=== PATIENT | female | born 1945 | race Hispanic/Latino ===

== ENCOUNTER 2019-04-30 22:54 | Emergency (ER) | payer OTHER, MEDICARE ==
[2019-05-01] MEDS ORDERED: KETOROLAC TROMETHAMINE 30MG/ML ONE (00:04)
[2019-05-01] MEDS ORDERED: DEXAMETHASONE SOD PHOSPHATE 10MG/ML 1ML VIAL ONE (00:04)
== END 2019-05-01 00:28 | disposition home or self-care (01) ==
LOC: EDH 22:54
DX: J01.90 Acute sinusitis, unspecified (principal); I10 Essential (primary) hypertension; Z88.8 Allergy status to other drugs, medicaments and biological substances
CPT/HCPCS: 70450; 96372 ×2; 99284; J1100; J1885

== ENCOUNTER → 2019-05-25 | Outpatient (CLI) | payer OTHER, MEDICARE | END | disposition home or self-care (01) | LOC: RAH 08:20 | PROVIDERS: ATTEND Internal Medicine | DX: K44.9 Diaphragmatic hernia without obstruction or gangrene (principal); K21.9 Gastro-esophageal reflux disease without esophagitis | CPT/HCPCS: 74240 ==

== ENCOUNTER 2019-10-23 15:48 | Emergency (ER) | payer OTHER, MEDICARE ==
[2019-10-23 16:20] LABS: BASOPHILS % (AUTO) 0.6 % (0.0-5.0); EOSINOPHILS % (AUTO) 1.6 % (0.0-8.0); HEMATOCRIT 36.4 % (36-48); LYMPHOCYTES % (AUTO) 28.9 % (21.0-51.0); MEAN CORPUSCULAR HEMOGLOBIN 31.3 pg (27.0-33.0); MONOCYTES % (AUTO) 5.8 % (3.0-13.0); NEUTROPHILS % (AUTO) 62.7 % (40.0-77.0); PLATELET COUNT (AUTO) 273 K/uL (130-400); RED BLOOD CELL COUNT(AUTO) 3.83 MIL/uL (4.00-5.50); RED CELL DISTRIBUTION WIDTH 13.2 % (11.0-15.5); WHITE BLOOD COUNT (AUTO) 8.3 K/uL (4.8-10.8)
[2019-10-23 16:21] LABS: APPEARANCE,URINE SL CLOUDY (CLEAR); BILIRUBIN,URINE NEGATIVE (NEGATIVE); COLOR,URINE YELLOW (YELLOW); GLUCOSE, URINE (UA) NEGATIVE (NEGATIVE); KETONES,URINE NEGATIVE (NEGATIVE); LEUKOCYTE ESTERASE ,URINE MODERATE (NEGATIVE); NITRATE,URINE POSITIVE (NEGATIVE); OCCULT BLOOD,URINE SMALL (NEGATIVE); PH,URINE 5.5 (5.0-8.0); PROTEIN,URINE NEGATIVE (NEGATIVE); UROBILINOGEN,URINE 0.2 mg/dL (0.2-1.0)
[2019-10-23 16:38] LABS: WBC,URINE 26-50 /HPF (0-1)
[2019-10-23 16:39] LABS: BACTERIA,URINE Moderate /HPF (None Seen); SQUAMOUS EPITHELIAL CELL,UR Few /HPF (0-2)
[2019-10-23 17:06] LABS: ALBUMIN 4.1 g/dL (3.5-5.0); BILIRUBIN,TOTAL 0.2 mg/dL (0.2-1.0); CREATININE 1.1 mg/dL (0.5-1.5); TOTAL PROTEIN, SERUM 7.8 g/dL (6.0-8.3)
[2019-10-23 17:12] LABS: POTASSIUM 3.1 mmol/L (3.5-5.1)
[2019-10-23] MEDS ORDERED: SODIUM CHLORIDE 0.9% 1000ML 1,000 ML IV ONE (17:49)
[2019-10-23] MEDS ORDERED: KETOROLAC TROMETHAMINE 15MG/ML ONE (17:49)
[2019-10-23] MEDS ORDERED: CEFTRIAXONE SODIUM 1 GM ONE (17:49)
[2019-10-23] MEDS ORDERED: SODIUM CHLORIDE 0.9% 100 ML IV ONE (17:50)
[2019-10-23] MEDS ORDERED: POTASSIUM BICARB/CIT AC 25 MEQ TABLET.EFF ONE (18:20)
== END 2019-10-23 19:00 | disposition home or self-care (01) ==
LOC: EDH 15:48
DX: N39.0 Urinary tract infection, site not specified (principal); M25.552 Pain in left hip; I10 Essential (primary) hypertension; Z98.51 Tubal ligation status; Z90.49 Acquired absence of other specified parts of digestive tract; Z98.890 Other specified postprocedural states
CPT/HCPCS: 36415; 73502; 74176; 80053; 81001; 83690; 85025; 87077; 87088; 87186; 96374; 96375; 99285; J0696; J1885; J7030

== ENCOUNTER 2024-07-23 10:55 | Emergency (ER) | payer OTHER, MEDICARE ==
[~2024-07-23] VITALS: Ht 162.6 cm; Wt 81.6 kg
--- NOTE | 2024-07-23 11:29 | ERN ---
General Chief Complaint: Hip Pain/Injury Stated Complaint: R HIP PAIN Time Seen by MD: 10:59 Source: patient History of Present Illness Initial Comments Patient is a 79-year-old female coming in complaining of right hip pain. She states that the right hip began its own she does not remember any traumatic event. The pain began two days ago the pain is present in the right hip region radiating down the anterior part in his leg. She states that ambulating makes the pain worse. Allergies: Coded Allergies: Iodine and Iodide Containing Produc (Unverified Allergy, Unknown, 05/01/19) Past Medical History Past Medical History: Hypertension, Hypothyroid, Other Medical History Other: GALLSTONES Past Surgical History: Appendectomy, Cholecystectomy, Other Surgical History Other: THYROIDECTOMY, TUBAL LIGATION, BILATERAL KNEE SX. ROS Dictation CONSTITUTIONAL: No chills, no fever, no weakness, no diaphoresis, no malaise. HEAD/FACE: No signs of trauma. EENT: No eye pain, no blurred vision, no tearing, no double vision, no ear pain, no ear discharge, no nose pain, no nasal congestion, no throat pain, no t hroat swelling, no mouth pain. RESPIRATORY: No cough, no orthopnea, no SOB, no stridor, no wheezing. CARDIOVASCULAR: No chest pain, no edema, no palpitations, no syncope. GASTROINTESTINAL/ABDOMINAL: No abdominal pain, no constipation, no diarrhea, n o nausea, no vomiting. GENITOURINARY: No abnormal discharge, no dysuria, no frequent urination, no hematuria. No complaints of pain in the genitals. MUSCULOSKELETAL: No back pain, no gout, no joint pain, no joint swelling, no muscle pain, no muscle stiffness, no neck pain. INTEGUMENTARY: No change in color, no change in hair/nails, no dryness, no lesion, no lumps, no rash. NEUROLOGICAL/PSYCH: No anxiety, not depressed, no emotional problem, no headache, no numbness, no pre-existing deficit, no history of seizures, no tremors, no weakness. HEMATOLOGIC/LYMPHATIC: Not anemic, no history of blood clots, no apparent bleeding, no bruising, glands not swollen. All Systems Negative, Except as Noted. Physical Exam Physical Exam Dictation VITAL SIGNS: Reviewed. GENERAL APPEARANCE: Alert, oriented x3, no acute distress, obese. HEAD AND FACE: Non-traumatic. EYES: PERRL, pink conjunctivas, eyelid no trauma, anterior chamber clear. EARS: Pinnas intact and no signs of trauma or erythema. Ear canals clear and no discharge. TMs no erythema. NOSE: No discharge, no bleeding. OROPHARYNX: Mouth normal, teeth no caries, tongue pink. Pharynx clear, no erythema. Tonsils no exudates, no abscesses noted. Mucous membrane moist. NECK: Supple, non-tender, no thyromegaly, no masses, no JVD, no bruits. BREAST: Deferred. CHEST: No tenderness, no crepitus, no paradoxical movement, no retractions. LUNGS: Clear, well-ventilated, symmetric, no rales, no wheezing, no rhonchi, no stridor, good breath sounds bilaterally. HEART: Regular rate, regular rhythm, no murmur, no gallops. VASCULAR: No peripheral edema. ABDOMEN: Soft, positive bowel sounds, nondistended, no guarding, nontender, no rebound, no masses no hepatomegaly, no splenomegaly, no Pierce's sign, no hernias. RECTAL: Deferred. GENITAL: Deferred. NEUROLOGICAL: Normal speech, gross motor function intact, gross sensory function intact. MUSCULOSKELETAL: Neck nontender, full range of motion, back nontender, full range of motion. EXTREMITIES: Nontender, full range of motion. SKIN: Color pink, dry, no turgor, no rash, no lacerations, no abrasions, no contusions. LYMPHATICS: Deferred. Results Laboratory and Microbiology Lab and Micro Result Laboratory Tests Test 07/23/24 12:45 07/23/24 12:59 Urine Color LIGHT-YELLOW (YELLOW) Urine Appearance CLEAR (CLEAR) Urine pH 5.5 (5.0-8.0) Urine Specific [place] 1.020 (1.001-1.031) Urine Protein 10 mg/dL (NEGATIVE) H Urine Glucose (UA) NEGATIVE mg/dL (NEGATIVE) Urine Ketones NEGATIVE mg/dL (NEGATIVE) Urine Occult Blood NEGATIVE (NEGATIVE) Urine Nitrate NEGATIVE (NEGATIVE) Urine Bilirubin NEGATIVE mg/dL (NEGATIVE) Urine Urobilinogen 0.2 mg/dL (0.2-1.0) Urine Leukocyte Esterase 250 Ivan/uL (NEGATIVE) H Urine RBC 2-5 /HPF (0-1) H Urine WBC 26-50 /HPF (0-1) H Urine Squamous Epithelial Cells RARE /HPF (0-2) Urine Bacteria RARE /HPF (None Seen) Urine Hyaline Casts 2-5 /LPF (0-1 /LPF) H Urine Other Casts 2 /LPF (None Seen) White Blood Count 6.4 K/uL (4.8-10.8) Red Blood Count 3.83 MIL/uL (4.00-5.50) L Hemoglobin 12.1 g/dL (12.0-16.0) Hematocrit 36.8 % (36-48) Mean Corpuscular Volume 96.1 fL (79-99) Mean Corpuscular Hemoglobin 31.6 pg (27.0-33.0) Mean Corpuscular Hemoglobin Concent 32.9 g/dL (32.0-36.0) Red Cell Distribution Width 13.5 % (11.0-15.5) Platelet Count 236 K/uL (130-400) Mean Platelet Volume 9.2 fL (7.5-10.5) Immature Granulocyte % (Auto) 0.6 % (0-1) Neutrophils (%) (Auto) 72.1 % (40.0-77.0) Lymphocytes (%) (Auto) 19.9 % (21.0-51.0) L Monocytes (%) (Auto) 6.8 % (3.0-13.0) Eosinophils (%) (Auto) 0.3 % (0.0-8.0) Basophils (%) (Auto) 0.3 % (0.0-5.0) Neutrophils # (Auto) 4.6 K/uL (1.8-7.7) Lymphocytes # (Auto) 1.3 K/uL (1.0-4.8) Monocytes # (Auto) 0.4 K/uL (0.1-1.0) Eosinophils # (Auto) 0.02 K/uL (0.00-0.70) Basophils # (Auto) 0.02 K/uL (0.00-0.20) Absolute Immature Granulocyte (auto 0.04 K/uL (0-1) Nucleated Red Blood Cells 0.0 % (0.0-0.19) Sodium Level 139 mmol/L (136-145) Potassium Level 3.5 mmol/L (3.5-5.1) Chloride Level 104 mmol/L (101-111) Carbon Dioxide Level 29 mmol/L (21-32) Blood Urea Nitrogen 19 mg/dL (7-18) H Creatinine 1.0 mg/dL (0.5-1.0) Glomerular Filtration Rate Calc 57 mL/min (>90) Random Glucose 106 mg/dL (70-105) H Total Calcium 9.8 mg/dL (8.5-10.1) Labs Reviewed?: Yes EKG/XRAY/US/CT/MRI CT Scan Comment [facility] [address] [place] [address] IMAGING REPORT Signed PATIENT: SINDY BOYCE MR#: [id number] : 1945 SEX: F AGE: 79 LOCATION: ED ORDER 112 STATUS: REG ER REPORT#: [id number] SERVICE [id number] REASON: pain rlq/ hip ORDERING PHYSICIAN: MARIVEL CHOUDHURY MD PROCEDURE: ABD PEL WO - CT ABDOMEN/PELVIS W/O CONTRAST CT ABDOMEN WITHOUT CONTRAST. CT PELVIS WITHOUT CONTRAST. INDICATION: Right lower abdominal pain TECHNIQUE: Routine transaxial imaging using 5 mm slice thickness through the abdomen and pelvis without the administration of IV contrast. Thin slice reconstructions are also provided. Coronal and sagittal reformatted images acquired for interpretation. CT was performed with one or more of the following dose reduction techniques: Automated exposure control, adjustment of the mA and/or kV according to patient size, or use of iterative reconstruction technique. COMPARISON: 10/23/2019 FINDINGS: ON NONCONTRAST IMAGING: ABDOMEN: Heart size is normal. Linear scarring at both lung bases. Small simple bilateral renal cysts. 2 mm nonobstructing calculus at the mid to lower portion of the left kidney. 3 mm nonobstructing calculus at the lower portion of the right kidney. Severe right renal atrophy. The liver is normal in size and smooth in contour without biliary duct dilation. The spleen is normal in size and attenuation. The gallbladder is absent. The pancreas appears normal without pancreatic duct dilation. The adrenal glands appear normal. No significant abdominal, retrocrural or retroperitoneal adenopathy noted. No evidence for intra-abdominal free air or organized fluid collection. Mild calcific plaque is noted along the abdominal aortic and iliac vessel sanderson without aneurysmal dilation. PELVIS: No abnormal calcifications within the urinary bladder or distal ureters. No evidence for free air or organized pelvic fluid collection. No significant pelvic adenopathy detected. Several diverticula along the colon. The appendix was not well-visualized, but no evidence for any right lower abdominal inflammatory changes noted. Small lipoma occupies the right tensor fasciae latae muscle. Visible osseous structures are intact. IMPRESSION: 1. Nonobstructing bilateral nephrolithiasis. Severe right renal atrophy. 2. Diverticulosis coli. 3. The appendix was not well-visualized, but no evidence for any right lower abdominal inflammatory changes noted. 4. Additional minor findings and pertinent negatives as reported. DICTATED BY: JOHN RETANA MD DATE: 07/23/24 1149 ELECTRONICALLY SIGNED BY: JOHN RETANA MD DATE: 07/23/24 1156 [facility] MDM: DIFFERENTIAL DIAGNOSIS: UTI, FIBROMYALGIA, SCIATICA, PATIENT IS A 39-YEAR-OLD FEMALE COMING IN TO BE EVALUATED FOR RIGHT FLANK PAIN. CT DID NOT DISCLOSE ACUTE FINDINGS. PATIENT WAS FOUND TO HAVE A URINARY TRACT INFECTION WE WILL BE DISCHARGED WITH ANTIBIOTICS I ADVISED HER APPROPRIATE FOLLOW UP WITH PCP. LONG WITH THIS PATIENT WILL BE DISCHARGED WITH A DIAGNOSIS OF SCIATICA OF THE RIGHT HIP. ED Course Orders Procedure Category Date Status Time Ct Abdomen/Pelvis W/O CT 07/23/24 Resulted Contrast 11:21 Urinalysis LAB 07/23/24 Complete W/Microscopic 11:21 Cbc With Differential LAB 07/23/24 Complete 12:31 Basic Metabolic Panel LAB 07/23/24 Complete 12:31 Culture Urine KERWIN 07/23/24 In Process 13:07 Vital Signs Date Time Temp Pulse Resp B/P (MAP) Pulse Ox O2 Delivery O2 Flow Rate FiO2 07/23/24 10:58 98.8 68 16 164/68 98 Room Air 0 07/23/24 10:58 98.8 68 16 164/68 98 Room Air* 0 21 DX & DISP Disposition: Discharge Departure Impression: Primary Impression: UTI (urinary tract infection) Additional Impression: Right sided sciatica Condition: Stable Scripts Acetaminophen (Tylenol) 500 Mg Tab 1 TAB PO Q6HPRN PRN for pain or fever for 5 Days, #30 TAB 0 Refills Prov: MARIVEL CHOUDHURY MD 07/23/24 Methocarbamol (Robaxin) 750 Mg Tab 1 TAB PO BID for 7 Days, #14 TAB 0 Refills Prov: MARIVEL CHOUDHURY MD 07/23/24 Cephalexin Monohydrate (Keflex) 500 Mg Cap 1 CAP PO BID for 10 Days, #20 CAP 0 Refills Prov: MARIVEL CHOUDHURY MD 07/23/24 Additional Instructions: FOLLOW-UP WITH PRIMARY CARE PROVIDER IN 1 TO 2 DAYS. TAKE MEDICATIONS DIRECTED HERE IN THE EMERGENCY ROOM. OKAY TO CONTINUE HOME MEDICATIONS UNLESS OTHERWISE DISCUSSED DURING YOUR VISIT IN THE EMERGENCY ROOM TODAY. RETURN TO YOUR NEAREST EMERGENCY ROOM IF SYMPTOMS WORSEN OR IF THERE IS NO IMPROVEMENT. CALL 911 IF YOU NEED IMMEDIATE ASSISTANCE. TAKE TYLENOL [id number] NEEDED AND IF NO CONTRAINDICATIONS ARE PRESENT. INCREASE ORAL HYDRATION. A WOUND CULTURE OR URINE CULTURE WAS ORDERED HERE IN THE EMERGENCY ROOM DEPARTMENT PLEASE FOLLOW-UP WITH PRIMARY CARE PROVIDER AND ADVISE THEM TO GET REPEAT PORTS FROM OUR FACILITY. IF YOU HAD ANY WANDY WRAP/SPLINTS THAT WERE APPLIED HERE, PLEASE DO NOT REMOVE THEM UNTIL YOU SEE YOUR PRIMARY CARE OR SPECIALTY. REFERRALS: Referrals: DARIAN HECK (PCP) Time of Disposition: 13:39 MARIVEL CHOUDHURY MD Jul 23, 2024 11:28
--- NOTE | 2024-07-23 11:56 | HMCIMG ---
CT ABDOMEN WITHOUT CONTRAST. CT PELVIS WITHOUT CONTRAST. INDICATION: Right lower abdominal pain TECHNIQUE: Routine transaxial imaging using 5 mm slice thickness through the abdomen and pelvis without the administration of IV contrast. Thin slice reconstructions are also provided. Coronal and sagittal reformatted images acquired for interpretation. CT was performed with one or more of the following dose reduction techniques: Automated exposure control, adjustment of the mA and/or kV according to patient size, or use of iterative reconstruction technique. COMPARISON: 10/23/2019 FINDINGS: ON NONCONTRAST IMAGING: ABDOMEN: Heart size is normal. Linear scarring at both lung bases. Small simple bilateral renal cysts. 2 mm nonobstructing calculus at the mid to lower portion of the left kidney. 3 mm nonobstructing calculus at the lower portion of the right kidney. Severe right renal atrophy. The liver is normal in size and smooth in contour without biliary duct dilation. The spleen is normal in size and attenuation. The gallbladder is absent. The pancreas appears normal without pancreatic duct dilation. The adrenal glands appear normal. No significant abdominal, retrocrural or retroperitoneal adenopathy noted. No evidence for intra-abdominal free air or organized fluid collection. Mild calcific plaque is noted along the abdominal aortic and iliac vessel sanderson without aneurysmal dilation. PELVIS: No abnormal calcifications within the urinary bladder or distal ureters. No evidence for free air or organized pelvic fluid collection. No significant pelvic adenopathy detected. Several diverticula along the colon. The appendix was not well-visualized, but no evidence for any right lower abdominal inflammatory changes noted. Small lipoma occupies the right tensor fasciae latae muscle. Visible osseous structures are intact. IMPRESSION: 1. Nonobstructing bilateral nephrolithiasis. Severe right renal atrophy. 2. Diverticulosis coli. 3. The appendix was not well-visualized, but no evidence for any right lower abdominal inflammatory changes noted. 4. Additional minor findings and pertinent negatives as reported.
[2024-07-23 13:00] LABS: APPEARANCE,URINE CLEAR (CLEAR); BILIRUBIN,URINE NEGATIVE (NEGATIVE); COLOR,URINE LIGHT-YELLOW (YELLOW); GLUCOSE, URINE (UA) NEGATIVE (NEGATIVE); KETONES,URINE NEGATIVE (NEGATIVE); LEUKOCYTE ESTERASE ,URINE 250 Leu/uL (NEGATIVE); NITRATE,URINE NEGATIVE (NEGATIVE); OCCULT BLOOD,URINE NEGATIVE (NEGATIVE); PH,URINE 5.5 (5.0-8.0); PROTEIN,URINE 10 mg/dL (NEGATIVE); UROBILINOGEN,URINE 0.2 mg/dL (0.2-1.0)
[2024-07-23 13:07] LABS: BACTERIA,URINE RARE /HPF (None Seen); MUCUS,URINE RARE LPF (None Seen); OTHER CASTS, URINE 2 /LPF (None Seen); SQUAMOUS EPITHELIAL CELL,UR RARE /HPF (0-2); WBC,URINE 26-50 /HPF (0-1)
[2024-07-23 13:16] LABS: BASOPHILS # (AUTO) 0.02 K/uL (0.00-0.20); BASOPHILS % (AUTO) 0.3 % (0.0-5.0); EOSINOPHILS # (AUTO) 0.02 K/uL (0.00-0.70); EOSINOPHILS % (AUTO) 0.3 % (0.0-8.0); HEMATOCRIT 36.8 % (36-48); IMMATURE GRANULOCYTE ABSOLUTE 0.04 K/uL (0-1); LYMPHOCYTES # (AUTO) 1.3 K/uL (1.0-4.8); LYMPHOCYTES % (AUTO) 19.9 % (21.0-51.0); MEAN CORPUSCULAR HEMOGLOBIN 31.6 pg (27.0-33.0); MEAN CORPUSCULAR HGB CONC 32.9 g/dL (32.0-36.0); MEAN CORPUSCULAR VOLUME 96.1 fL (79-99); MONOCYTES # (AUTO) 0.4 K/uL (0.1-1.0); MONOCYTES % (AUTO) 6.8 % (3.0-13.0); NEUTROPHILS # (AUTO) 4.6 K/uL (1.8-7.7); NEUTROPHILS % (AUTO) 72.1 % (40.0-77.0); PLATELET COUNT (AUTO) 236 K/uL (130-400); RED BLOOD CELL COUNT(AUTO) 3.83 MIL/uL (4.00-5.50); RED CELL DISTRIBUTION WIDTH 13.5 % (11.0-15.5); WHITE BLOOD COUNT (AUTO) 6.4 K/uL (4.8-10.8)
[2024-07-23 13:24] LABS: POTASSIUM 3.5 mmol/L (3.5-5.1)
[2024-07-23] MEDS ORDERED: METH-662 PO (13:41)
[2024-07-23] MEDS ORDERED: ACET-66 PO (13:41)
[2024-07-23] MEDS ORDERED: CEPH500B PO (13:41)
[2024-07-23 13:44] VITALS: BP 158/59; PULSE 64; RESP 16; TEMP 98.3; O2SAT 98
== END 2024-07-23 14:02 | disposition home or self-care (01) ==
LOC: EDH 10:55 → EEVIPCON 10:55 → EDH 14:02
DX: N39.0 Urinary tract infection, site not specified (principal); M54.31 Sciatica, right side; I10 Essential (primary) hypertension; E03.9 Hypothyroidism, unspecified; Z88.8 Allergy status to other drugs, medicaments and biological substances; Z90.49 Acquired absence of other specified parts of digestive tract; Z90.89 Acquired absence of other organs; Z91.041 Radiographic dye allergy status; Z98.51 Tubal ligation status
CPT/HCPCS: 36415; 74176; 80048; 81001; 85025; 87086; 99284

== ENCOUNTER → 2024-07-29 | Outpatient (CLI) | payer OTHER, MEDICARE ==
[~2024-07-29] MED LIST: ACET-66 PO; CEPH500B PO; METH-662 PO
--- NOTE | 2024-07-29 11:09 | HMCIMG ---
BONE DENSITOMETRY: HISTORY: ASYMPTOMATIC MENOPAUSE STATE Comparison: None FINDINGS: BMD measured at AP spine L1-L4 is 1.079 g/cm2 with a T-score of 0.3 Bone density is up to 10% below young normal. This patient is considered normal according to WHO criteria. Fracture risk is low. BMD measured at Left Femoral Neck is 0.608 g/cm2 with a T-score of -2.3 Bone density is between 10 and 25% below young normal. This patient is considered osteopenic. Fracture risk is moderate. BMD measured at Left Femoral Total is 0.834 g/cm2 with a T-score of -1.0 Bone density is between 10 and 25% below young normal. This patient is considered osteopenic. Fracture risk is moderate. IMPRESSION: Osteopenia. Treatment and follow-up recommended.
== END | disposition home or self-care (01) ==
LOC: RAH 09:38
PROVIDERS: ATTEND Family Medicine
DX: M85.89 Other specified disorders of bone density and structure, multiple sites (principal); Z78.0 Asymptomatic menopausal state
CPT/HCPCS: 77080